=== PATIENT | female | born 1945 | race Caucasian/White ===

== ENCOUNTER → 2023-10-08 11:30 | Outpatient (REF) | payer MEDICARE, OTHER, SELFPAY ==
[2023-10-08 16:00] LABS: Hematocrit 43.3 % (37.0-47.0); Hemoglobin 14.7 g/dL (12.0-16.0); Mean Corp Hgb Conc. 33.9 g/dL (33.0-37.0); Mean Corpuscular Volume 88.4 fL (81.0-99.0); Platelet Count 213 10^3/uL (130-400); Red Cell Dist. Width 12.3 % (11.5-14.5); White Blood Cell Count 4.7 10^3/uL (4.8-10.8)
[2023-10-08 16:18] LABS: ALT (SGPT) 28 U/L (0-35); AST (SGOT) 30 U/L (14-36); Albumin 4.2 g/dl (3.5-5.0); Alkaline Phosphatase 106 U/L (38-126); Direct Bilirubin 0.2 mg/dl (0.0-0.4); Iron 140 ug/dl (37-170); Total Bilirubin 0.7 mg/dl (0.2-1.3); Total Protein 6.5 g/dl (6.3-8.2)
[2023-10-08 16:27] LABS: Percent Saturation 41 % (20-50); Total Iron Binding Capacity 336 ug/dl (265-497)
[2023-10-09 00:30] LABS: IgA 108 mg/dl (70-400); IgG 707 mg/dl (700-1600); IgM 40 mg/dl (40-230)
[2023-10-09 19:05] LABS: Hepatitis B Surface Antigen Negative (Negative)
[2023-10-09 19:23] LABS: Hepatitis B Core Ab, Total Negative (Negative); Hepatitis B Surface Antibody Negative; Hepatitis C Antibody Negative (Negative)
[2023-10-09 20:31] LABS: Hepatitis A Antibody, Total Borderline (Negative)
[2023-10-10 22:24] LABS: F-Actin Antibody IgG 6 Units (0-19); Mitochondrial M2 Ab, IgG 19.7 Units (0.0-24.9)
[2023-10-10 23:17] LABS: LKM-1 Ab (IgG) 0.8 U (0.0-24.9)
[2023-10-11 04:07] LABS: Alpha-1-Antitrypsin 141 mg/dL (90-200)
[2023-10-11 04:08] LABS: Ceruloplasmin 23 mg/dL (16-45)
[2023-10-11 13:22] LABS: ANA, IgG Reflex to HEp-2 None Detected (None Detected)
== END ==
LOC: HWLAB 11:30
PROVIDERS: ATTENDING PHYSICIAN Internal Medicine Gastroenterology; FAMILY PHYSICIAN Family Medicine
DX: K76.0 Fatty (change of) liver, not elsewhere classified (principal)
CPT/HCPCS: 36415; 80076; 82103; 82390; 82728; 82784; 83516; 83540; 83550; 85027; 86015; 86038; 86376; 86381; 86704; 86706; 86708; 86803; 87340

== ENCOUNTER → 2023-10-09 06:29 | Day surgery (SDC) | payer MEDICARE, OTHER, SELFPAY | LOC: GI 06:29 | PROVIDERS: ATTENDING PHYSICIAN Internal Medicine Gastroenterology | DX: Z12.11 Encounter for screening for malignant neoplasm of colon (principal); D12.2 Benign neoplasm of ascending colon; D12.5 Benign neoplasm of sigmoid colon; K57.30 Diverticulosis of large intestine without perforation or abscess without bleeding; K63.5 Polyp of colon; K62.1 Rectal polyp; K62.5 Hemorrhage of anus and rectum; Z85.038 Personal history of other malignant neoplasm of large intestine; Z98.0 Intestinal bypass and anastomosis status | CPT/HCPCS: 45380; 88305 ==

== ENCOUNTER 2023-10-23 19:00 | Emergency (ER) | payer MEDICARE, OTHER, SELFPAY ==
[2023-10-23 19:03] VITALS: BP 154/98
--- NOTE | 2023-10-23 21:21 | ED.SKININJ ---
HPI-Injury
General
Chief Complaint: Skin Surface Trauma
Source: patient and spouse
Exam Limitations: none
Time Seen by Provider: 10/23/23 21:13
Nursing documentation reviewed up to this point in time: agreed with
Travel History
Have you had any contact with someone who has COVID-19?: No
Do you have any symptoms of coronavirus? Fever > 100 degrees, chills, cough, shortness of breath, sore throat, loss of taste or smell, muscle aches, or headache?: No
History of Present Illness-Injury
Initial Injury comments:
Pleasant 78-year-old female that presents with a laceration to her left lower extremity. She states that she was cooking dinner and went to close a cabinet with her lower leg and she accidentally caught her anterior distal leg on a pot handle. She
states that the bleeding was severe so her called 911. She is unsure of her last tetanus status. Denies any other injury. Upon arrival, EMS was able to stop the bleeding with direct pressure.
Past History
Past History
ED Past Medical History: CAD, HTN, Hypercholesterolemia, [place], Other (Colon cancer 1997) and Other (L breast CA with lumpectomy and radiation treatments 2017)
ED Past Surgical History: Bowel resection, Cardiac (stent) and Other (Colon cancer with resection)
Social History
Tobacco: Non-smoker
Alcohol: None
Personal:
Living: with family
Employment: Not employed
Family History
Family History: Other (Noncontributory)
Review of Systems
Review of Systems
Allergies reviewed?: Yes
All Other Systems: ROS reviewed and negative except as documented in HPI and ROS
Constitutional: Reports no symptoms
EENT: Reports no symptoms
Respiratory: Reports no symptoms
Cardiac: Reports no symptoms
ABD/GI: Reports no symptoms
: Reports no symptoms
Musculoskeletal: Reports no symptoms
Skin: Reports no symptoms
Neurological: Reports no symptoms
Endocrine: Reports no symptoms
Hematologic/Lymphatic: Reports bleeding
Psychiatric: Reports no symptoms
Phy Exam
General Physical Exam
General Presentation: well appearing
General age: appears stated age
Skin Exam
Skin Exam: laceration
Psychiatric Exam
Psychiatric Exam: normal mood/affect
Course
Orders/Labs/Results
Orders:
Orders
10/23/23 21:19
Tetanus/Diphth/Acelpertussis [Adacel] 0.5 ml IM .ONCE ONE
Vital Signs
Initial and Last Documented VS:
Initial Vital Signs
Temp Pulse Resp BP Pulse Ox
98.1 F 62 18 154/98 97
10/23/23 19:03 10/23/23 19:03 10/23/23 19:03 10/23/23 19:03 10/23/23 19:03
Last Documented Vital Signs
Temp Pulse Resp BP Pulse Ox
98.1 F 60 16 149/83 99
10/23/23 19:03 10/23/23 22:38 10/23/23 22:38 10/23/23 22:38 10/23/23 22:38
Procedures
Laceration Closure
Left Lower Lateral Leg:
Status of Wound: clean
Size of Wound in cm: 5
Description of Wound Edges: sharp and flap-well vascularized
Preparation: cleaned with saline
Anesthesia: 1% Lidocaine
Revision/Debridement: routine- no revision
Wound exploration: explored to base- no FB
Type of Closure: single layer closure
Skin Closure Material: 4-0 nylon
Number of sutures: 9
Additional information:
Steri-Strips were added over sutures for strength
*Critical Care Note
Total Time (30-74mins, 75-104mins- exclusive of procedures): Not Applicable
ED Attending Note
-
Portions of this chart may have been created with voice recognition software.� Occasional wrong word or��sound alike� substitutions may have occurred due to the inherent limitations of voice recognition software.
Discharge Plan
Departure
Patient Disposition: Home (Routine Discharge)
Date of Disposition: 10/23/23
Time of Disposition: 22:15
Patient with high blood pressure during this ER visit?: Yes
Condition: Good
Discharge Problem:
Laceration
Instructions: Wound Care (DC), Laceration Repair With Stitches (DC), BLOOD PRESSURE
Prescriptions:
No Action
pantoprazole 40 MG tablet,delayed release (DR/EC)
40 mg PO DAILY Qty: 90 3RF
aspirin 81 MG tablet,chewable
81 mg PO DAILY 0RF
Patient Comments:
02/28/2021: STOPPED FOR SURGERY
metoprolol tartrate 25 MG tablet
25 mg PO BID Qty: 180 3RF
nitroglycerin 0.4 MG tablet, sublingual
0.4 mg sublingual [id number] PRN (Reason: chest pain) Qty: 25 2RF
acetaminophen 325 MG tablet
650 mg PO Q4HPRN PRN (Reason: mild pain)
hydrocodone-acetaminophen 1 TABLET tablet
1 - 2 tab PO Q6HPRN PRN (Reason: moderate pain)
Patient Comments:
02/28/2021: last filled 02/21/21, 30 tabs for 7 days from [facility]
gabapentin 300 MG capsule
300 mg PO HS
rosuvastatin 5 MG tablet
5 mg PO .3X WEEK
losartan 25 MG tablet
25 mg PO BID
Referrals:
Bc Larios DO [Family Provider] -
Activity Restrictions/Additional Instructions:
Sutures can be removed in 7 to 10 days.
Your tetanus shot was updated today
It was a pleasure meeting you and taking part in your care. We hope for your continued healing and wellness.
Please read discharge instructions in their entirety. However, they are for general education and may not describe your exact diagnosis at discharge. Information on your ER visit and medical conditions were discussed with you along with appropriate
follow up information...
If indicated, please take your medications as instructed and indicated on discharge paperwork.
Please schedule a follow up appointment as directed. Call to schedule an appointment
Please return to the emergency department with ANY change in, persisting, or worsening of symptoms. If any of your symptoms do not improve, or persist, or become more severe within 6-12 hours, please return to the emergency department for further
care.
Please return to the emergency department if you develop a headache, neck pain/stiffness, fever greater than 100.4F, chest pain, shortness of breath, persistent nausea, vomiting, slurred speech, difficulty walking, numbness/tingling, weakness, signs
of infection or any other symptoms that are worrisome to you.
If you have any questions or concerns please do not hesitate to call the Hospital at or E-mail me directly at [email or web address]
Interventions
Interventions:
*Risk Screen - Suicide Last Done: 10/23/23 19:07
*General Assessment Last Done: 10/23/23 19:07
*Neglect/Abuse Screening Last Done: 10/23/23 19:07
*Nursing Disposition Last Done: 10/23/23 22:38
Discharge Date and Time
Discharge Date/Time: 10/23/23 22:39
Print Language: CZECH
[2023-10-23] MEDS: ADACEL 0.5 ML IM (22:16)
[2023-10-23 22:38] VITALS: BP 149/83
== END 2023-10-23 22:39 | disposition home or self-care (01) ==
LOC: EMR 19:00
PROVIDERS: EMERGENCY PHYSICIAN Student in an Organized Health Care Education/Training Program; FAMILY PHYSICIAN Family Medicine
DX: S81.812A Laceration without foreign body, left lower leg, initial encounter (principal); W23.0XXA Caught, crushed, jammed, or pinched between moving objects, initial encounter; Z23 Encounter for immunization; I25.10 Atherosclerotic heart disease of native coronary artery without angina pectoris; I10 Essential (primary) hypertension; E78.00 Pure hypercholesterolemia, unspecified; Z95.5 Presence of coronary angioplasty implant and graft
CPT/HCPCS: 99282; 12002; 90471; 90715

== ENCOUNTER → 2024-04-12 13:04 | Outpatient (REF) | payer MEDICARE, OTHER, SELFPAY | LOC: RAD 13:04 | PROVIDERS: ATTENDING PHYSICIAN Nurse Practitioner Family; FAMILY PHYSICIAN Family Medicine | DX: I70.218 Atherosclerosis of native arteries of extremities with intermittent claudication, other extremity (principal); I82.542 Chronic embolism and thrombosis of left tibial vein | CPT/HCPCS: 93922; 93925; 93971 ==

== ENCOUNTER → 2024-04-20 12:03 | Outpatient (REF) | payer MEDICARE, OTHER, SELFPAY ==
[2024-04-20 16:58] LABS: HDL Cholesterol 42 mg/dl; LDL Cholesterol, Calculated 162 mg/dl; Total Cholesterol 250 mg/dl (50-199); Triglyceride 230 mg/dl (10-149); Very Low Density Lipoprotein 46 mg/dl (0-30)
== END ==
LOC: HWLAB 12:03
PROVIDERS: ATTENDING PHYSICIAN Nurse Practitioner; FAMILY PHYSICIAN Nurse Practitioner Family
DX: E78.5 Hyperlipidemia, unspecified (principal)
CPT/HCPCS: 36415; 80061

== ENCOUNTER → 2024-04-29 13:52 | Outpatient (REF) | payer MEDICARE, OTHER, SELFPAY | LOC: HWRCS 13:52 | PROVIDERS: ATTENDING PHYSICIAN Nurse Practitioner; FAMILY PHYSICIAN Family Medicine | DX: I10 Essential (primary) hypertension (principal) | CPT/HCPCS: 93306 ==

== ENCOUNTER → 2024-07-20 12:12 | Outpatient (REF) | payer MEDICARE, OTHER, SELFPAY ==
[2024-07-20 17:29] LABS: ALT (SGPT) 31 U/L (0-35); AST (SGOT) 32 U/L (14-36); Albumin 4.6 g/dl (3.5-5.0); Alkaline Phosphatase 112 U/L (38-126); Blood Urea Nitrogen 23 mg/dl (7-17); Calcium 9.9 mg/dl (8.4-10.2); Carbon Dioxide 29 mmol/L (22-30); Chloride 101 mmol/L (98-107); Direct Bilirubin 0.2 mg/dl (0.0-0.4); Glucose 97 mg/dl (70-99); Potassium 4.3 mmol/L (3.5-5.1); Sodium 139 mmol/L (135-145); Total Bilirubin 0.9 mg/dl (0.2-1.3); Total Protein 6.8 g/dl (6.3-8.2); eGFR > 60.00
[2024-07-20 19:48] LABS: Hepatitis A Antibody, Total Positive (Negative)
== END ==
LOC: HWLAB 12:12
PROVIDERS: ATTENDING PHYSICIAN Internal Medicine; FAMILY PHYSICIAN Nurse Practitioner Family; REFERRING PHYSICIAN Internal Medicine Gastroenterology
DX: I10 Essential (primary) hypertension (principal); K76.0 Fatty (change of) liver, not elsewhere classified
CPT/HCPCS: 36415; 80053; 82248; 86708

== ENCOUNTER → 2024-10-07 11:11 | Outpatient (REF) | payer MEDICARE, OTHER, SELFPAY ==
[2024-10-07 16:17] LABS: ALT (SGPT) 28 U/L (0-35); AST (SGOT) 27 U/L (14-36); Albumin 4.4 g/dl (3.5-5.0); Alkaline Phosphatase 101 U/L (38-126); Blood Urea Nitrogen 19 mg/dl (7-17); Calcium 9.9 mg/dl (8.4-10.2); Carbon Dioxide 28 mmol/L (22-30); Chloride 104 mmol/L (98-107); Glucose 96 mg/dl (70-99); Potassium 4.1 mmol/L (3.5-5.1); Sodium 140 mmol/L (135-145); Total Bilirubin 0.8 mg/dl (0.2-1.3); Total Protein 6.6 g/dl (6.3-8.2); eGFR > 60.00
[2024-10-07 16:18] LABS: Urine Albumin 1+ (Neg - Trace); Urine Bilirubin Negative (Negative); Urine Character Slightly Cloudy (Clear); Urine Color Yellow; Urine Glucose Negative (Negative); Urine Ketone Negative (Negative); Urine Leukocyte 3+ (Negative); Urine Nitrite Negative (Negative); Urine Occult Blood 1+ (Negative); Urine Urobilinogen Negative (Neg - 1+)
[2024-10-07 16:28] LABS: C-Reactive Protein < 5.00 mg/L (0.0-10.00)
[2024-10-07 16:30] LABS: % Eosinophils 2.8 % (0-6); % Immature Granulocytes 0.6 % (0-0.5); % Lymphocytes 21.6 % (20.5-51.1); % Monocytes 11.9 % (1.7-9.3); % Neutrophils 62.1 % (42.2-75.2); Absolute Basophils 0.1 10^3/uL (0-0.2); Absolute Eosinophils 0.1 10^3/uL (0-0.7); Absolute Lymphocytes 1.1 10^3/uL (1.2-3.4); Absolute Monocytes 0.6 10^3/uL (0.1-0.6); Absolute Neutrophils 3.1 10^3/uL (1.4-6.5); Hematocrit 43.7 % (37.0-47.0); Hemoglobin 14.6 g/dL (12.0-16.0); Mean Corp Hgb Conc. 33.4 g/dL (33.0-37.0); Mean Corpuscular Hgb 29.7 pg (27.0-31.0); Mean Corpuscular Volume 88.8 fL (81.0-99.0); Mean Platelet Volume 9.3 fL (7.4-10.4); Nucleated Red Blood Cells % 0 %; Platelet Count 191 10^3/uL (130-400); Red Blood Cell Count 4.92 10^6/uL (4.20-5.40); Red Cell Dist. Width 12.4 % (11.5-14.5)
[2024-10-07 16:47] LABS: Free T4 0.84 ng/dl (0.78-2.19)
[2024-10-07 17:34] LABS: Erythrocyte Sed Rate 2 mm/hour (0-20)
[2024-10-07 17:44] LABS: Urine Squamous Cell >30 /LPF (Few)
[2024-10-07 17:46] LABS: Urine Bacteria Many (Negative); Urine White Cell 50-60 /HPF (0-5)
[2024-10-08 10:21] LABS: Glycohemoglobin (HgbA1c) 5.9 % (4.0-5.6)
[2024-10-10 00:39] LABS: ANA, IgG Reflex to HEp-2 None Detected (None Detected)
[2024-10-10 07:29] LABS: Arsenic, Blood <10.0 ug/L (<=12.0); Lead - Venous <2.0 ug/dL (<=4.9); Mercury, Blood <2.5 ug/L (<=10.0)
== END ==
LOC: HWLAB 11:11
PROVIDERS: ATTENDING PHYSICIAN Specialist; FAMILY PHYSICIAN Nurse Practitioner Family
DX: I10 Essential (primary) hypertension (principal); Z00.00 Encounter for general adult medical examination without abnormal findings; I73.00 Raynaud's syndrome without gangrene; M25.50 Pain in unspecified joint; R53.83 Other fatigue
CPT/HCPCS: 36415; 80053; 81003; 81015; 82088; 82175; 82384; 83036; 83655; 83825; 83835; 84244; 84439; 84443; 85025; 85652; 86038; 86140; 86430; 86618; 87086

== ENCOUNTER → 2024-10-22 09:41 | Outpatient (REF) | payer MEDICARE, OTHER, SELFPAY | LOC: HWRAD 09:41 | PROVIDERS: ATTENDING PHYSICIAN Specialist; FAMILY PHYSICIAN Family Medicine; REFERRING PHYSICIAN Internal Medicine | DX: I10 Essential (primary) hypertension (principal); I25.10 Atherosclerotic heart disease of native coronary artery without angina pectoris | CPT/HCPCS: 93975 ==

== ENCOUNTER 2025-01-03 01:59 | Inpatient (IN) | payer MEDICARE, OTHER, SELFPAY ==
[2025-01-02] VITALS (7 sets, daily range): BP systolic 118–147; BP diastolic 76–87
[2025-01-02 21:19] LABS: Hematocrit 40.4 % (37.0-47.0); Hemoglobin 14.1 g/dL (12.0-16.0); Mean Corp Hgb Conc. 34.9 g/dL (33.0-37.0); Mean Corpuscular Volume 87.8 fL (81.0-99.0); Nucleated Red Blood Cells % 0 %; Platelet Count 180 10^3/uL (130-400); Red Cell Dist. Width 12.3 % (11.5-14.5)
[2025-01-02 21:40] LABS: ALT (SGPT) 26 U/L (0-35); AST (SGOT) 27 U/L (14-36); Albumin 4.3 g/dl (3.5-5.0); Alkaline Phosphatase 87 U/L (38-126); Blood Urea Nitrogen 25 mg/dl (7-17); Calcium 10.0 mg/dl (8.4-10.2); Carbon Dioxide 27 mmol/L (22-30); Chloride 106 mmol/L (98-107); Estimated Creatinine Clearance 61 ml/min; Glucose 106 mg/dl (70-99); Potassium 3.3 mmol/L (3.5-5.1); Sodium 140 mmol/L (135-145); Total Protein 6.5 g/dl (6.3-8.2); eGFR > 60.00
[2025-01-02 21:51] LABS: Troponin I 0.031 ng/ml
[2025-01-02] MEDS: NITROSTAT (SUBLINGUAL) 0.4 MG SL ×3 (22:47→23:14)
--- NOTE | 2025-01-02 23:14 | ED.GENMED ---
History of Present Illness
General
Chief Complaint: Chest Pain
Source: patient, family and previous hospital records
Exam Limitations: none
Time Seen by Provider: 01/02/25 22:53
Nursing documentation reviewed up to this point in time: agreed with
History of Present Illness
History of Present Illness:
This is a 79-year-old woman with history of CAD, non-STEMI March 2020. Underwent PTCA with stent to the circumflex. She also has history of hypertension, hyperlipidemia, remote history of breast cancer status postlumpectomy/radiation, remote
history of colon cancer. History of T2-T3 meningioma requiring surgical excision 2020.
She presents with exertional substernal chest pain/pressure that has been intermittent over the past week. Substernal chest pain described as a burning sensation substernal that radiates to her anterior neck, worse with activity, improves with
rest. Occasionally accompanied with mild shortness of breath, occasionally associated with mild diaphoresis as well as 1 episode of mild nausea.
She arrives via EMS. Was given 324 mg chewable aspirin prehospital.
Initially without chest pain upon arrival but reports return of chest pain after ambulating to and from the bathroom.
She believes chest pain feels similar to chest pain she experienced in 2019 with non-STEMI.
Prehospital EKG shows normal sinus rhythm, flipped T waves inferiorly with very minimal ST depression in lead I and aVL. ST depression normalized upon arrival to the ED, flipped T waves in 3 persists, has flattened and aVF. No evidence of STEMI.
Patient also notes several week history of left medial lower leg discomfort at an area of chronic venous insufficiency/hemosiderin staining left medial lower leg as well as chronic subcutaneous nodularity. She underwent ultrasound at urgent care on
Friday, 5 days ago while she was at the [facility]. She states ultrasound was negative for DVT. She was prescribed an antibiotic for potential cellulitis but she did not start the antibiotic due to intermittent episodes of chest pain, burning
sensation. She admits that she did not mention the chest pain while evaluated at urgent care.
She has not had a fever nor chills. Left lower leg brownish discoloration is chronic and unchanged. She has not noticed redness.
Past History
Past History
ED Past Medical History: CAD, HTN, Hypercholesterolemia, [place] (Non-STEMI March 2020), Other (Colon cancer 1997), Other (L breast CA with lumpectomy and radiation treatments 2017) and Other (T2/T3 meningioma requiring resection)
ED Past Surgical History: Bowel resection, Cardiac (PTCA with stent to the circumflex March 2020) and Other (Colon cancer with resection)
Social History
Tobacco: Non-smoker
Alcohol: None
Personal:
Living: with family
Employment: Retired
Family History
Family History: Other (Noncontributory)
Phy Exam
Physical Exam
Physical Exam:
GENERAL: 79-year-old woman appears her stated age, bright and alert, pleasant, appears in no acute distress. Multiple family members are accompanying.
EYE: anicteric
NECK: Supple, nontender, no meningismus, no significant adenopathy. No JVD.
ENT: oral mucosa is moist. No rhinorrhea.
CARDIAC: Regular rate and rhythm. no murmur. No palpable chest wall tenderness.
LUNGS: Clear breath sounds bilaterally, no acute respiratory distress, no wheezes/rales/rhonchi
ABDOMEN: Soft, nondistended, without focal tenderness, normoactive BS.
NEUROLOGICAL: Alert and oriented x3, no focal neuro deficits.
SKIN: Warm and dry, normal color, skin intact. No rash.
MUSCULOSKELETAL: No C/C/E. peripheral pulses are full and equal b/l. Venous stasis hemosiderin staining left medial lower leg with palpable subcutaneous nodularity left medial lower leg that is mildly locally tender to palpation. There is no
erythema, no palpable heat. No soft tissue swelling.
PSYCH: Normal and appropriate interaction.
Scores
Heart Score for Chest Pain Patients
STEMI patient?: No
History: Highly Suspicious
ECG: Normal
Age: >/= 65 years
Risk Factors: >/= 3 Risk Factors or History of CAD
Troponin: >1 - <3 x Normal Limit
Heart Score for Chest Pain Patients: 7
Heart Score Risk: 72.7 % MACE over next 6 weeks
Course
Orders/Labs/Results
Orders:
Orders
01/02/25 20:52
Electrocardiogram (*1) Urgent
Reason for Study: Chest Pain
EKG- Treatment ONCE
01/02/25 21:00
Complete Blood Count/With Diff Urgent
Comprehensive Metabolic Panel Urgent
Troponin I Urgent
01/02/25 22:38
EKG [Electrocardiogram (*1)] Urgent
Reason for Study: Chest Pain
EKG- Treatment ONCE
01/02/25 22:45
Nitroglycerin Sublingual [Nitrostat (Sublingual)] 0.4 mg .ROUTE .STK-MED ONE
01/02/25 22:46
Nitroglycerin Sublingual [Nitrostat (Sublingual)] 0.4 mg SL [id number] PRN
01/02/25 22:59
PTT Urgent
01/02/25 23:10
Nitroglycerin Sublingual [Nitrostat (Sublingual)] 0.4 mg SL NOW STA
CR Chest Portable - 1 View Urgent
Comment:
Reason For Exam: Acute CP
Reason Study Needs to be Portable: Unable to Transport
01/02/25 23:[address] Non Medication Order As Directed
Physician Order: PTT 6 hours after initial start of Heparin infusion
Above order entered?: Yes
01/02/25 23:15
Heparin 38109 Units/250 ml 25,000 units in 250 ml IV PER PROTOCOL
Weight to be used for heparin protocol in kilograms (kg):: 75.7
Protocol:: Cardiac Tx/Acute Coronary
PTT Goal Range to be used:: PTT 73 to 111 seconds
Order type:: Initial
INITIAL Infusion Dose (UNITS/KG/hr) & then follow protocol:: 12 units/kg/hr
Infusion Dose in UNITS/hr & then follow protocol (UNITS/hr):: 900
INFUSION RATE in mL/hr & then follow protocol (mL/hr):: 9
PTT less than or equal to 64 seconds:: Increase rate by 200 units/hr (+ 2 mL/hr)
PTT 64.1 to 72.9 seconds:: Increase rate by 100 units/hr (+ 1 mL/hr)
PTT 73 to 111 seconds:: Target Range. No change in rate.
PTT 111.1 to 130.9 seconds:: Decrease rate by 100 units/hr (- 1 mL/hr)
PTT 131 to 199.9 seconds:: HOLD for 1 hr. Then decrease rate by 200 units/hr (- 2 mL/hr)
PTT greater than or equal to 200 seconds:: HOLD for 2 hrs & Notify Provider. Then decrease by 200 units/hr (-
2 mL/hr)
Lab follow-up:: Each change, PTT q6h until 2 consecutive are therapeutic. Then PTT
daily.
01/02/25 23:18
Troponin I Urgent
01/03/25 01:27
Admit/Transfer Patient As Directed
Co-Sign Provider:
Level of Care: Inpatient admission
Assign to:: IVU
Physician / Group: Rory
Diagnosis: NSTEMI
Reason for Hospitalization: NSTEMI
Expected length of stay greater than two midnights?: Yes
ELOS- Estimated Length of Stay in days: 3
I certify the patient meets the requirements for IP care: Yes
PRN Pain Medication Management As Directed
May give lesser potent ordered pain med per pt: Yes
preference::
Protocol:: Medication orders for pain may be administered in a
manner that supports deferring to patient preference
when the pt is:
- Requesting an ordered lesser potent pain medication.
Least to most potent pain medications are defined
as: acetaminophen < NSAID < tramadol < opioids
(morphine, oxycodone, hydromorphone).
- Requesting a lesser dose of the same medication IF
ORDERED.
- Requesting a less intrusive route of administration
if both routes are prescribed by the provider (PO <
IV).
01/03/25 01:29
Code Status As Directed
Resuscitation Status: Full Code
01/03/25 02:46
Acetaminophen [Tylenol] 650 mg PO Q4HPRN PRN
Morphine Sulfate 2 mg IV Q4HPRN PRN
01/03/25 02:46
CARDIOLOGY CONSULT Routine
Consulting Provider: Isabel Luke.
Was physician already notified: Yes
Reason for consult: NSTEMI
Heparin Protocol- PTT Orders As Directed
PTT per Heparin protocol: -Obtain CBC and baseline PTT - if not already collected.
-Obtain PTT 6 hours from start of infusion. Then, every 6 hours until 2 consecutive
PTT's are therapeutic. Then, PTT Daily.
-With each rate change, obtain PTT every 6 hours until 2 consecutive PTT's are
therapeutic. Then, PTT Daily.
Activity As Directed
Activity Level: Bedrest
EKG with chest pain [ECG as needed] As Directed
ECG as needed for:: Chest Pain
I/O [Intake/ Output] As Directed
Frequency: Per unit guidelines
Notify MD As Directed
Notify physician if: PTT is greater than or equal to 200.
Vital Signs As Directed
Frequency: Per unit guidelines
Oxygen Therapy [O2 Therapy] [RESP] Routine
Titrate/Wean O2 to maintain O2 sat greater than (%): 94
01/03/25 05:49
Basic Metabolic Panel IN AM
Cardiovascular Evaluation IN AM
Complete Blood Count/No Diff IN AM
Glycohemoglobin (HgbA1c) Routine
PTT Urgent
Comment: hep gtt
Troponin I Q6H
01/03/25 06:00
EKG [Electrocardiogram (*1)] IN AM
Reason for Study: Chest Pain
NPO
Allow oral meds: Yes
Allow clear liquids: Sips of Clears
01/03/25 08:00
Aspirin Chewable [Low Strength Aspirin] 81 mg PO DAILY
Carvedilol [Coreg] 6.25 mg PO BID
Ezetimibe [Zetia] 10 mg PO DAILY
Gabapentin [Neurontin] 200 mg PO BID
Losartan [Cozaar] 50 mg PO BID
01/03/25 08:46
Troponin I Q6H
01/03/25 14:46
Troponin I Q6H
01/05/25 06:00
Complete Blood Count/No Diff Q2D
Comment: notify provider: Platelet count < 130,000 or decrease by 50% from baseline
01/07/25 06:00
Complete Blood Count/No Diff Q2D
Comment: notify provider: Platelet count < 130,000 or decrease by 50% from baseline
01/09/25 06:00
Complete Blood Count/No Diff Q2D
Comment: notify provider: Platelet count < 130,000 or decrease by 50% from baseline
01/11/25 06:00
Complete Blood Count/No Diff Q2D
Comment: notify provider: Platelet count < 130,000 or decrease by 50% from baseline
01/13/25 06:00
Complete Blood Count/No Diff Q2D
Comment: notify provider: Platelet count < 130,000 or decrease by 50% from baseline
01/15/25 06:00
Complete Blood Count/No Diff Q2D
Comment: notify provider: Platelet count < 130,000 or decrease by 50% from baseline
01/17/25 06:00
Complete Blood Count/No Diff Q2D
Comment: notify provider: Platelet count < 130,000 or decrease by 50% from baseline
01/19/25 06:00
Complete Blood Count/No Diff Q2D
Comment: notify provider: Platelet count < 130,000 or decrease by 50% from baseline
Abnormal Lab Results
01/02/25 01/02/25
21:00 23:18
Absolute Monos (auto) 0.8 H 10^3/uL
(0.1-0.6)
Monocytes % 13.3 H %
(1.7-9.3)
Potassium 3.3 L mmol/L
(3.5-5.1)
BUN 25 H mg/dl
(7-17)
Glucose 106 H mg/dl
(70-99)
Troponin I 0.054 H* D ng/ml
01/02/25 21:00
01/02/25 21:00
Vital Signs
Initial and Last Documented VS:
Initial Vital Signs
Temp Pulse Ox
97.9 F 98
01/02/25 20:52 01/02/25 20:52
Last Documented Vital Signs
Temp Pulse Resp BP Pulse Ox
98.3 F 69 16 146/85 97
01/03/25 03:20 01/03/25 04:00 01/03/25 03:20 01/03/25 03:20 01/03/25 03:20
MDM/Problems Addressed
Differential Diagnosis Includes:
History and exam quite concerning for ACS. Concern for non-STEMI. Other consideration is CHF, GERD, musculoskeletal chest pain. Less likely pneumonia.
Mild return of chest pain after ambulating to and from the bathroom. Repeat EKG again shows no evidence of STEMI.
There is been resolution of high lateral ST depression and resolution of flipped T waves inferiorly noted on prehospital EKG.
Current EKG overall appears similar to previous January 2021.
Labs are unremarkable save for mild hypokalemia with potassium of 3.3. Initial troponin 0.031.
Near complete resolution of chest pain after 2 sublingual nitroglycerin. Will give a third and will initiate IV heparin.
Will repeat troponin now.
Will plan to admit to hospitalist service with consult to cardiology. Patient follows with Dr. Hurst.
Chronic conditions affecting care: HTN and CAD
*Pulse Oximetry
SaO2: 97
Oxygen Mode of Delivery: Room air
Patient hypoxic: no
*EKG
Interpreted by ED Provider?: Yes
Interpretation: normal
Comparison EKG: no changes
Rate: normal
Rhythm: sinus
[place]: left axis deviation
Interval: normal interval
QRS Pattern: normal QRS
Ischemia: non-specific ST changes
*Medical Instrument Technician Interpretation
Rate: normal
Interpretation: normal
Rhythm: sinus
*Critical Care Note
Total Time (30-74mins, 75-104mins- exclusive of procedures): 30
comment:
Critical care statement: A total of 30 minutes of critical care time was provided for this patient. This includes management of unstable vital signs, evaluation of the patient at bedside, reviewing the patient's pertinent medical records, discussion
with consultants, review of old EKGs and review of pertinent medical records. This time with separate from time utilized to perform the aforementioned documented procedures
ED Attending Note
-
Portions of this chart may have been created with voice recognition software.� Occasional wrong word or��sound alike� substitutions may have occurred due to the inherent limitations of voice recognition software.
Discharge Plan
Departure
Patient Disposition: Admit
Date of Disposition: 01/03/25
Time of Disposition: 00:13
Admit to: IVU
Admit to doctor: Rory
Presentation/result/management discussed w/ accepting MD/DO: Hospitalist
Condition: Fair
Discharge Problem:
Acute coronary syndrome
Interventions
Interventions:
*Risk Screen - Suicide Last Done: 01/02/25 20:52
*General Assessment Last Done: 01/02/25 20:52
*Neglect/Abuse Screening Last Done: 01/02/25 20:52
*ED- Fall Risk Assessment Last Done: 01/02/25 20:52
*ED COVID-19 Vaccine History Last Done: 01/02/25 20:52
*Nursing Disposition Last Done: 01/03/25 02:54
ED- Cardiac Assessment Last Done: 01/02/25 20:52
Discharge Date and Time
Discharge Date/Time: 01/03/25 02:54
[2025-01-02 23:16] LABS: APTT 29.0 Sec (23.4-35.0)
[2025-01-02] MEDS: HEPARIN 25000 UNITS/250 ML IV (23:29)
[2025-01-02 23:55] LABS: Troponin I 0.054 ng/ml
[2025-01-03] VITALS (17 sets, daily range): BP systolic 132–172; BP diastolic 68–101; BMI 31.4
--- NOTE | 2025-01-03 01:33 | HPS.HSE ---
Family Physician
-
Family Physician: Manuela Sewell
Chief Complaint
-
Chest Pain
History of Present Illness
Patient is a 79y F with PMH significant for ASCVD and hypertension who presents to ED complaining of chest pain. Patient notes that she had initial chest 'crunchiness' on Friday of this past week. She was in a stressful, emotional situation
involving a dog and a chicken when the symptoms first began. Since that time, she has had several episodes of recurrent symptoms - typically associated with activity / exertion. She has occasionally had associated diaphoresis or nausea. Her
symptoms typically last several minutes and are relieved by rest. She also notes waking in the night with similar symptoms - and in retrospect states that this has been occurring for at the least the past month or so.
Patient had an episode of severe chest pain / heaviness this evening that was of greater intensity that prior episodes. She presented to the ED for further evaluation.
Since arrival, her pain has completely resolved. She is currently resting comfortably without complaints.
Patient states that she is intermittently compliant with her ASA and takes it 'when I remember'.
Patient also notes that she has had difficulty walking for several months due to pain in the legs with ambulation. She has leg cramps several times throughout the night that wake her from sleep and improve with soaking in warm water.
Medical History
Past Medical History
Past Medical History: Reports Other
Additional Past Medical History:
ASCVD
Hypertension
Colon Cancer
Breast Cancer
Spinal Meningioma
Past Surgical History: Reports Other
Additional Past Surgical History:
PTCA with Stent (LCx, 2019)
Spinal Mass (T3-4)
Appendectomy
D&C
Right Rotator Cuff Repair
Left Lumpectomy
Cataracts
Left Hemicolectomy
Thyroid Biopsy
Social History
Tobacco: Non-smoker
Alcohol: Occasional
Drug: None
Family History
Family History: Not pertinent
Allergies / Home Medications
Allergies reflects when Allergies were last updated in [employer].
Home Medications with original date entered in [employer]
Allergy/Medication List:
Allergies
Allergy/AdvReac Type Severity Reaction Status Date / Time
lisinopril Allergy Shortness Verified 01/02/25 20:51
of Breath
meperidine HCl (From Demerol) Allergy intensifies Verified 01/02/25 20:51
the pain
Home Medications
nitroglycerin 0.4 mg sublingual tablet 0.4 mg sublingual [id number] PRN chest pain #25 tabs 04/07/20
aspirin 81 mg chewable tablet 81 mg PO DAILY 01/03/25
carvedilol 6.25 mg tablet 6.25 mg PO BID 01/03/25
ezetimibe 10 mg tablet 10 mg PO DAILY 01/03/25
gabapentin 100 mg tablet 200 mg PO BID 01/03/25
hydrochlorothiazide 12.5 mg tablet 12.5 mg PO DAILY 01/03/25
levomefolate 7.5 mg-algal oil 90.314 mg capsule 1 cap PO DAILY 01/03/25
losartan 50 mg tablet 50 mg PO BID 01/03/25
Review of Systems
-
History Source: Patient
A 12 point ROS was completed and negative except as noted: Yes
Constitutional: Denies Fever or Chills
Respiratory: Reports Trouble Breathing; Denies Cough
Cardiac: Reports Chest Pain and Diaphoresis; Denies Palpitations or Syncope
Abdomen/GI: Reports Nausea; Denies Abdominal Pain, Vomiting or Diarrhea
: Denies Dysuria or Frequency
Musculoskeletal: Denies Joint Pain or Edema
Neurological: Denies Dizzy or Headache
Psych: Denies Depression or Anxiety
Physical Exam
Vital Signs
Vital Signs
Temp Pulse Resp BP Pulse Ox
97.9 F 77 20 152/76 97
01/02/25 20:52 01/03/25 01:00 01/03/25 01:00 01/03/25 01:00 01/03/25 01:00
Physical Exam
General: Other (79y F in no acute distress.)
HEENT: Moist mucous membranes and PERRLA
Respiratory: Clear; No Wheezes, Rales or Rhonchi
Cardiac: S1/S2 and Regular Rhythm; No Murmur
GI: Soft, Non Tender, Non Distended and Normal Bowel Sounds
Musculoskeletal: No Clubbing, No Cyanosis and Other (Chronic venous stasis skin / pigment changes.)
Neuro: AO x 3
Laboratory Results
-
01/02/25 21:00
01/02/25 21:00
Laboratory Results
APTT 29.0 Sec (23.4-35.0) 01/02/25 22:59
Total Bilirubin 0.7 mg/dl (0.2-1.3) 01/02/25 21:00
AST 27 U/L (14-36) 01/02/25 21:00
ALT 26 U/L (0-35) 01/02/25 21:00
Alkaline Phosphatase 87 U/L (38-126) 01/02/25 21:00
Troponin I 0.054 ng/ml H* D 01/02/25 23:18
Impression/Plan
-
A/P: Patient is a 79y F with PMH significant for ASCVD and hypertension who presents to ED complaining of chest pain.
NSTEMI
ASCVD
- Admit for further evaluation and treatment.
- Patient with some symptoms for at least a month (paroxysmal nocturnal dyspnea, chest pain, etc) and now more severe / frequent chest pain with exertion for the past week.
- EKG with inverted T wave in III alone that improved on repeat tracing.
- Troponin 0.031 to 0.054.
- Pain free at present.
- IV heparin, ASA. Follow troponin to peak. Monitor for recurrent symptoms.
- Cardiology consulted for probable ischemic evaluation.
- Emphasized to patient the importance of compliance with uninterrupted ASA therapy.
- She is resistant to taking statins despite her significant risks. Continue Zetia.
Benign Hypertension
- Stable. BP controlled at present.
- Continue outpatient med regimen with holding parameters.
Leg Cramps
- Suspect that LE symptoms (pain with activity, nocturnal cramps, etc) may also be due to ASCVD / PAD.
- Would pursue non-invasive vascular studies after CAD issues are addressed.
DVT Prophylaxis: On IV Heparin at present.
Code Status: Full
[2025-01-03] MEDS: KCL 40 MEQ PO (03:26)
--- NOTE | 2025-01-03 03:47 | PTCARENOTE ---
Received pt from ED accompanied by RN, at approx 0245, via stretcher. Tele placed on pt. SR, HR in the 70's. Heparin gtt infusing per protocol. pt denies any CP or SOB at this time. pt K was 3.3 upon admission, K supplement administered per [employer]
order--see AUG. pt made aware of NPO status, verbalizes understanding. pt oriented to room and call soares. Educated pt to call RN with any questions/concerns and for assistance w/ ambulating. Call soares within reach.
[2025-01-03 06:00] LABS: Hematocrit 38.0 % (37.0-47.0); Hemoglobin 13.1 g/dL (12.0-16.0); Mean Corp Hgb Conc. 34.5 g/dL (33.0-37.0); Mean Corpuscular Volume 87.8 fL (81.0-99.0); Platelet Count 156 10^3/uL (130-400); Red Cell Dist. Width 12.3 % (11.5-14.5)
--- NOTE | 2025-01-03 06:08 | PTCARENOTE ---
Assisted pt to bathroom, pt noted chest pressure with exertion, when asked to rate the pain on scale of 0-10, pt was vague with response and eventually stated it was a 4/10. pt laying in bed at this time. pt states w/ rest, the pain has resolved and
she has no pain at this time. Educated pt to call RN if any CP occurs. pt verbalizes understanding. Call soares within reach.
[2025-01-03 06:16] LABS: APTT 65.2 Sec (23.4-35.0)
[2025-01-03 06:23] LABS: Blood Urea Nitrogen 19 mg/dl (7-17); Calcium 9.6 mg/dl (8.4-10.2); Carbon Dioxide 26 mmol/L (22-30); Chloride 109 mmol/L (98-107); Estimated Creatinine Clearance 70 ml/min; Glucose 91 mg/dl (70-99); HDL Cholesterol 38 mg/dl; LDL Cholesterol, Calculated 116 mg/dl; Potassium 3.8 mmol/L (3.5-5.1); Sodium 140 mmol/L (135-145); Very Low Density Lipoprotein 30 mg/dl (0-30); eGFR > 60.00
[2025-01-03 06:36] LABS: Troponin I 0.060 ng/ml
--- NOTE | 2025-01-03 07:31 | CON.CAR ---
Addendum entered and electronically signed by Darion Ames MD 01/03/25 10:53:
I saw and examined the patient.
The AUTO RENTAL CLERK's note was reviewed and I agree with the note.
Comment: cath today
Original Note:
Consultation
Consultation Request
Date/Time Consultation Requested: 01/03/2025 02:45
Date/Time Consultation Performed: 01/03/2025 07:30
Requesting Provider: Dr. Valadez
Performing Provider: RED Stiles for Dr. Ames
Reason for Consultation: NSTEMI
Medical History
-
Chief Complaint: Chest pain
History of Present Illness:
Catherine Cardoso is a 79-year-old female (known to Dr. Hurst, her primary tools and parts attendant), with CAD (NSTEMI with JAVON to LCx/OM and residual disease), hypertension, hypercholesterolemia, statin intolerance, breast cancer (status post lumpectomy and XRT,
2016), & colon cancer (hemicolectomy, 1997), presented to the emergency department last evening with a chief complaint of chest pain. This has been ongoing for about a month. This is all reminiscent from her prior PCI. She describes her chest
discomfort as a burning sensation. It gets worse with exertion and improves with rest. It does not radiate. She denies associated symptoms of shortness of breath, dizziness, and diaphoresis. She thinks this escalated due to a situation with her
dog chasing a chicken. She is not having any chest pain at rest. We discussed coronary angiography. She is agreeable. She has not been taking aspirin every day. She was unaware of its importance. She thought it was 'just recommended'. She
thought her losartan was keeping her stent open. She is not on any statin due to intolerance. She is also concerned about lowering her cholesterol and it affecting her brain activity. We did discuss rosuvastatin and she was agreeable for trial.
Past Medical History
Past Medical History: CAD (JAVON to LCx 2019), Cancer (Breast [status post lumpectomy and XRT, 2016], colon cancer [hemicolectomy, 1997]), HTN, Hypercholesterolemia, SD and Other (Meningioma)
Past Surgical History: Appendectomy, Bowel Resection, Brain (Meningioma resection) and Orthopedic
Social History
Tobacco: Non-Smoker
Alcohol: None
Drug: None
Personal:
Living: With Family
Family History
Family History: Reviewed & Not Pertinent
Allergies / Home Medications
Allergy/AdvReac Type Severity Reaction Status Date / Time
lisinopril Allergy Shortness Verified 01/02/25 20:51
of Breath
meperidine HCl (From Demerol) Allergy intensifies Verified 01/02/25 20:51
the pain
�Medication �Instructions �Recorded �Confirmed �Type
nitroglycerin 0.4 mg sublingual 0.4 mg sublingual [id number] PRN 04/07/20 01/03/25 Rx
tablet chest pain #25 tabs
aspirin 81 mg chewable tablet 81 mg PO DAILY 01/03/25 01/03/25 History
carvedilol 6.25 mg tablet 6.25 mg PO BID 01/03/25 01/03/25 History
ezetimibe 10 mg tablet 10 mg PO DAILY 01/03/25 01/03/25 History
gabapentin 100 mg tablet 200 mg PO BID 01/03/25 01/03/25 History
hydrochlorothiazide 12.5 mg tablet 12.5 mg PO DAILY 01/03/25 01/03/25 History
levomefolate 7.5 mg-algal oil 1 cap PO DAILY 01/03/25 01/03/25 History
90.314 mg capsule
losartan 50 mg tablet 50 mg PO BID 01/03/25 01/03/25 History
Review of Systems
-
History Source: Patient
All other systems: Negative unless noted
Constitutional: No Symptoms
EENT: No Symptoms
Respiratory: No Symptoms
Cardiac: Chest Pain (See HPI)
Abdomen/GI: No Symptoms
: No Symptoms
Musculoskeletal: Muscle Pain (Chronic leg pain)
Skin: No Symptoms
Neurological: No Symptoms
Endocrine: No Symptoms
Hematologic/Lymphatic: No Symptoms
Physical Exam
Vital Signs
Temp Pulse Resp BP Pulse Ox
97.9 F 69 20 146/85 97
01/03/25 07:19 01/03/25 04:00 01/03/25 07:19 01/03/25 03:20 01/03/25 07:19
Lab Results
01/03/25 05:49
01/03/25 05:49
Troponin I 0.060 ng/ml H* 01/03/25 05:49
Physical Exam
General: Well Developed, Well Nourished, No Apparent Distress and Comfortable
HEENT: Normocephalic, Anicteric and Moist Mucous Membranes
Respiratory: Clear and Non Labored Respirations
Cardiac: S1/S2 and Regular Rhythm
Breast: Deferred by me
GI: Soft, Non Tender, Non Distended and Normal Bowel Sounds
Rectal: Deferred by Provider
Genito-urinary: No Costovertebral Tender
Musculoskeletal: No Clubbing and No Cyanosis
Skin: Warm
Neuro: AO x 3
Hematologic/Lymphatic: No Lymphadenopathy
Psych: Calm
Impression / Plan
-
I/P: 79F with CAD (NSTEMI with JAVON to LCx/OM and residual disease), hypertension, hypercholesterolemia, statin intolerance, breast cancer (status post lumpectomy and XRT, 2017), & colon cancer (hemicolectomy, 1997), presented with CP.
Primary Hvac Mechanic: Dr. Hurst
NSTEMI
- Chest pain-free at rest
- Trend troponin to peak, currently 0.060
- Echocardiogram
- Coronary angiography today
CAD
- Prior PCI, occasionally will forget ASA
- Continue medical therapy
- Statin intolerance, she does not recall which medication, agreeable to trial of rosuvastatin, goal LDL <70, ideally less than 55
Statin intolerance
- Lipid panel: TC 184, LDL 116, HDL 38, TG 152
- Retrial of rosuvastatin 10 mg, she is not interested in atorvastatin
- If she does not tolerate rosuvastatin, PCSK9 will be recommended
Hypertension
- Stable but slightly above goal
- Lisinopril caused cough in the past
Hypercholesterolemia, plan as above
Lower extremity pain, with neuropathy, this has been ongoing for greater than 6 months
Prior breast cancer status postlumpectomy and XRT (left, 2017)
Colon cancer status post left hemicolectomy (1997)
Status post meningioma resection
Data Reviewed
-
EKG: Report Reviewed by me (Sinus rhythm, inferior T wave inversion, rate 69)
Medical Tests (Nuc Med, Echo etc): Report Reviewed by me
Labs: Labs Reviewed by me
Old Records: Reviewed
--- NOTE | 2025-01-03 09:02 | W.PN.HOSP.TC ---
Today's Communication/Plan
-
Cardiac cath today
Assessment / Plan
Assessment / Plan
Physical exam:
General: Acutely ill
HEENT: Normocephalic, Atraumatic and Moist Mucous Membranes
Respiratory: Clear to Auscultation; Negative Wheezes, Rales or Rhonchi
Cardiac: Regular Rhythm and S1/S2
GI: Soft, Nontender and Nondistended
Musculoskeletal: No Clubbing, No Cyanosis and No Edema
Neuro: Awake, Alert and Oriented, no neurodeficits
Psych: Answers
A/P:
NSTEMI
ASCVD
- Admit for further evaluation and treatment.
- Patient with some symptoms for at least a month (paroxysmal nocturnal dyspnea, chest pain, etc) and now more severe / frequent chest pain with exertion for the past week.
- EKG with inverted T wave in III alone that improved on repeat tracing.
- Troponin 0.031 to 0.054.
- Pain free at present.
- IV heparin, ASA. Follow troponin to peak. Monitor for recurrent symptoms.
- Cardiology consulted for probable ischemic evaluation.
- Emphasized to patient the importance of compliance with uninterrupted ASA therapy.
- She is resistant to taking statins despite her significant risks. Continue Zetia.
- Cardiology consult appreciated. Plan for cardiac cath today
- Discussed with daughter at bedside
Benign Hypertension
- Stable. BP controlled at present.
- Continue outpatient med regimen with holding parameters.
Leg Cramps
- Suspect that LE symptoms (pain with activity, nocturnal cramps, etc) may also be due to ASCVD / PAD.
- Would pursue non-invasive vascular studies after CAD issues are addressed.
DVT Prophylaxis: On IV Heparin at present.
Code Status: Full
Anticipated Discharge: 24 - 48 hours
Subjective/Interval History
-
Date of Service: January 03, 2025
Patient denies chest pain at rest. Still having symptoms on exertion
Objective Data
-
Labs:
Laboratory Results
01/02/25 01/02/25 01/03/25
21:00 22:59 05:49
WBC 6.1 4.3 L
Hgb 14.1 13.1
Hct 40.4 38.0
Plt Count 180 156
APTT 29.0 65.2 H
Sodium 140 140
Potassium 3.3 L 3.8
Chloride 106 109 H
Carbon Dioxide 27 26
BUN 25 H 19 H
Creatinine 0.7 0.6
Glucose 106 H 91
Calcium 10.0 9.6
Total Bilirubin 0.7
AST 27
ALT 26
Alkaline Phosphatase 87
01/03/25
12:30
WBC
Hgb
Hct
Plt Count
APTT Pending
Sodium
Potassium
Chloride
Carbon Dioxide
BUN
Creatinine
Glucose
Calcium
Total Bilirubin
AST
ALT
Alkaline Phosphatase
Vital Signs:
Vital Signs
Temp Pulse Resp BP Pulse Ox
97.9 F 69 20 146/85 97
01/03/25 07:19 01/03/25 04:00 01/03/25 07:19 01/03/25 03:20 01/03/25 07:19
I&O
01/02/25 01/03/25 01/04/25
06:59 06:59 06:59
Intake Total 36 / 36
Balance 36 / 36
[2025-01-03 09:30] LABS: Glycohemoglobin (HgbA1c) 5.7 % (4.0-5.6)
[2025-01-03] MEDS: NEURONTIN 200 MG PO ×2 (09:32→20:13)
[2025-01-03] MEDS: COZAAR 50 MG PO ×2 (09:32→20:14)
[2025-01-03] MEDS: LOW STRENGTH ASPIRIN 81 MG PO (09:33)
[2025-01-03] MEDS: COREG 6.25 MG PO ×2 (09:33→20:14)
[2025-01-03] MEDS: ZETIA 10 MG PO (09:33)
--- NOTE | 2025-01-03 10:50 | PTCARENOTE ---
assumed care of pt. pt is sb/sr on the monitor, hr in the 60s, vss. pt ambulated to br and c/o of cp when walking back. Pain resolved after laying down. bp 150/83. pt now resting in bed comfortably. notified Benita mojica, continue to monitor.
heparin gtt running per protocol, see documentation. pt educated on plan of care and pt verbalized understanding.
--- NOTE | 2025-01-03 12:06 | CM ---
Chart reviewed. Patient is independent of ADLS, lives with her in a [address], [facility], ambulates with a rollator, and a SPC outside the home. Plan is for the patient to return home. CM to follow
[2025-01-03 13:35] LABS: APTT 85.6 Sec (23.4-35.0)
[2025-01-03 13:49] LABS: Troponin I 0.036 ng/ml
[2025-01-03 16:15] LABS: ACT-LR - POC 348 Seconds (116-155)
[2025-01-03 17:35] LABS: ACT-LR - POC 302 Seconds (116-155)
--- NOTE | 2025-01-03 17:39 | ITS.CL.CATH ---
[employer] - Catheterization
Cardiac Catheterization
Procedure Report:
CARDIAC CATHETERIZATION REPORT
Date of Procedure: 01/03/2025
Referring: Darion Ames M.D.
INDICATION: Non-ST elevation myocardial infarction.
PROCEDURE:
1. Left heart catheterization.
2. Coronary angiography.
3. Successful PCI of the mid RCA.
4. Shockwave lithotripsy of the mid LAD.
5. Successful IVUS guided PCI of the mid and distal LAD.
A total of 125 minutes of procedural/moderate sedation was utilized. An independent certified medical assistant was present to assist with and help manage the patient's level of consciousness and physiologic status.
ACCESS:
1. 6 Tajik right radial artery using a modified Seldinger technique.
CATHETERS:
1. 5 [place] JR4.
2. 5 Taj[place] JL 3.5.
3. 6 [place] JR4 guiding catheter.
4. 6 [place]ik EBU 3.5 guiding catheter.
HEMODYNAMIC DATA
Weight (kg): 72.6
AO (s/d/x, mmHg): 133/69/96
LV (s/x mmHg): 137/12
LEFT VENTRICULOGRAPHY: Not performed.
CORONARY ANGIOGRAPHY
Dominance: Right.
Left Main: Normal size, bifurcating vessel. There is no coronary artery disease.
LAD: Normal size vessel giving rise to 3 diagonals. There is a densely calcified plaque beginning in the mid LAD that tapers, culminating in a 90% lesion that is immediately distal to the second diagonal. There is an underappreciated, 70%
lesion in the distal LAD, spanning the origin of the third diagonal. There are 40% and 50% lesions in the distal LAD, unamenable to intervention.
Ramus: Congenitally absent.
Circumflex: Normal size, nondominant vessel giving rise to 3 obtuse marginals. OM1 and OM 2 are relatively small vessels. OM 3 is a large vessel supplying the majority of the inferolateral wall. There is a patent stent extending from the
circumflex into the proximal margin of OM 3 with no in-stent restenosis.
RCA: Enormous, dominant vessel with a large posterolateral arcade. There is a 90%, focal lesion in the mid RCA.
INTERVENTION(S)
1. Successful PCI of the focal, 90% RCA lesion (Xience keven point 4.0 x 23 JAVON, postdilated with a 5.0 NC balloon) with reduction in stenosis to 0%, maintaining IKE-3 flow.
2. Successful intracoronary lithotripsy of the densely calcified 90% mid LAD lesion (Shockwave 2.5 x 12 lithotripsy balloon).
3. Successful IVUS guided PCI of the densely calcified mid LAD plaque (including the 90% lesion) and the 75% distal LAD lesion (Xience Skypoint 2.5 x 38 JAVON, postdilated with a 2.5 NC balloon throughout and a 3.0 NC balloon in the proximal margin)
with reduction in stenoses to 0%, maintaining IKE-3 flow.
Narrative:
After discussing the case with Dr. Christianson and reviewing the films, the decision was made to proceed with percutaneous coronary intervention. The diagnostic catheter was removed over a wire and a 6Fr JR4 guiding catheter was advanced to the aortic root
and seated in the right coronary artery. Additional heparin was given and a Power Turn Flex wire was advanced into the distal RCA. The 90% mid RCA lesion was predilated with a 2.0 x 12 semi-compliant balloon to 12 mary beth. The decision was made to more
aggressively predilate the lesion. The 2.0 x 12 semicompliant balloon was withdrawn and a 3.5 x 12 semicompliant balloon was advanced. The mid RCA lesion was dilated to 12 mary beth. The semi-compliant balloon was removed and a Xience Skypoint 4.0 x 23
drug-eluting stent was advanced. The stent was deployed at 12 atmospheres. The stent balloon was removed. A 5.0 x 15 noncompliant balloon was advanced into the stent and the stent was postdilated to 12 atmospheres. Angiography was performed in
orthogonal views, confirming good stent expansion and an excellent angiographic result. The coronary wire was withdrawn and the guide was disengaged from the artery.
We then turned our attention to the LAD. The 6 Tajik JR4 guiding catheter was removed over a wire and a 6Fr EBU 3.5 guiding catheter was advanced to the aortic root and seated in the left main coronary artery. The Power Turn Flex wire was advanced
into the distal LAD. Given the notable size of the 2nd and 3rd diagonal, the decision was made to attempt some level of protection. A BMW wire was advanced into the LAD and we attempted to protect the third diagonal. Unfortunately, the BMW wire
would not enter the third diagonal in spite of numerous attempts. The BMW wire was placed in the second diagonal and marked. A whisper wire was advanced into the LAD and was able to easily traverse the ostium of D3. This wire was also marked.
A Shockwave 2.5 x 12 coronary lithotripsy balloon was advanced over the wire and into the mid LAD lesion. The balloon was sterilely connected to the controller and prepped to negative pressure. Unfortunately, the Shockwave balloon would not
advance beyond the proximal portion of the mid LAD. The decision was made to reposition the Shockwave balloon with GuideLiner support. The Shockwave balloon was withdrawn. Given its tenuous position, we also removed the BMW wire from the second
diagonal.
A 6 Tajik GuideLiner was advanced over the 2.0 x 12 balloon. The GuideLiner was able to enter the mid LAD, but the 2.0 x 12 semicompliant balloon could not move beyond the underappreciated 75% distal LAD lesion which spanned the origin of D3. The
2.0 x 12 semicompliant balloon was removed and a fresh balloon was advanced. A fresh balloon was able to cross the lesion with some difficulty. The 75% distal LAD lesion and the densely calcified mid LAD plaque were all dilated to 12 mary beth. Given
the improved ability to move equipment in this dilated artery, we took this opportunity to advance the GuideLiner as far as we could into the mid LAD. The semicompliant balloon was removed and the Shockwave balloon was readvanced.
Meticulous care was taken while positioning the shockwave balloon. Once in satisfactory position, the balloon was inflated to 4 mary beth. After confirming good contact with the vessel wall, 10 pulses were delivered. After delivering 10 pulses, the
balloon was inflated to 6 mary beth then deflated. The entire mid LAD was treated in a similar manner for total of 7 rounds.
After the final Shockwave delivery, the Shockwave balloon was deflated and the GuideLiner was used to sheath the balloon and enter the mid LAD down to the level of the bifurcation with D3. A Xience Skypoint 2.5 x 38 drug-eluting stent was advanced.
The stent was deployed at 9 atmospheres. The stent balloon was removed. A 2.5 x 20 noncompliant balloon was advanced into the stent and the entire stent was postdilated to 12 atmospheres. The 2.5 x 20 noncompliant balloon was withdrawn and a 3.0 x
12 noncompliant balloon was advanced. The proximal stent margin in the mid LAD was postdilated to 14 mary beth. The noncompliant balloon was withdrawn.
The decision was made to perform intracoronary imaging. An IVUS catheter was advanced through the guiding catheter and into the ostium of the artery. Ring down was performed once the imaging crystal was no longer inside of the guiding catheter. The
IVUS catheter was advanced into the mid LAD but would not cross into the distal LAD, possibly due to the angulation of the LAD after the third diagonal. Intravascular ultrasound was performed in a retrograde fashion using a slow pullback.
Intracoronary imaging demonstrated good stent apposition throughout the entire stented segment with some mild underexpansion in the more distal aspect. This also confirmed the dense calcification within the entire LAD territory.
The decision was made to more aggressively dilate the distal aspect of the stented segment. 2.5 x 20 noncompliant balloon was readvanced. The distal aspect of the stent was postdilated to 18 mary beth. The remainder of the mid stent was postdilated to
20 mary beth. The noncompliant balloon was withdrawn.
Angiography was performed in orthogonal views, confirming good stent expansion and an excellent angiographic result with maintenance of IKE-3 flow in the LAD, preserving IKE-3 flow in all of the diagonals. The coronary wire was withdrawn and the
guide was disengaged from the artery. The catheter was removed over a standard J-wire.
Closure Device: Vascular band.
Radiation (mGy): 1323
DAP (cm2.Gy): 63.9
Fluoroscopy time (minutes): 28.5
CONCLUSIONS
1. Right dominant circulation with a widely patent stent in the left circumflex into OM 3, densely calcified mid LAD lesion culminating in a 90% stenosis followed by a 75% lesion in the distal LAD spanning the origin of the third diagonal and a
focal, 90% lesion in the in the enormous RCA. There is moderate, nonintervenable disease in the distal LAD.
2. Status post successful PCI to the 90% RCA lesion (Xience keven point 4.0 x 23 JAVON, postdilated with a 5.0 NC balloon) with reduction in stenosis to 0%, maintaining IKE-3 flow.
3. Status post intracoronary lithotripsy to the densely calcified mid LAD lesion, followed by successful IVUS guided PCI of the 90% mid LAD lesion and 75% distal LAD lesion (Xience Skypoint 2.5 x 38 JAVON, postdilated with a 2.5 NC balloon throughout
and a 3.0 NC balloon in the proximal margin) with reduction in stenosis to 0%, maintaining IKE-3 flow in the LAD as well as the notable diagonals.
4. Normal filling pressures (LVEDP = 12 mmHg at 72.6 kg).
RECOMMENDATIONS:
1. Expectant management after cardiac catheterization via right radial approach.
2. Limited weight bearing on the right wrist for one week.
3. Dual antiplatelet therapy with aspirin and ticagrelor for at least 12 months, followed by aspirin indefinitely.
4. Aggressive secondary prevention. Statin intolerance will require the use of PCSK9 inhibitors versus inclisiran.
5. OMT/GDMT as hemodynamics will tolerate.
6. Echocardiogram ordered and pending.
7. Referral to cardiac rehab.
Copy to: Amari Aldridge M.D., [facility]
Melvin Agudelo, DO, FACC, FACP
--- NOTE | 2025-01-03 18:36 | PTCARENOTE ---
received pt from ccl. right radial is cdi. pt offers no complaints at this time. family at bedside visiting. pt is sr on the monitor, hr in the 70s, vss. pt educated on plan of care and pt verbalized understanding. call soares within reach.
[2025-01-03] MEDS: TYLENOL 650 MG PO (20:13)
--- NOTE | 2025-01-03 20:30 | PTCARENOTE ---
Received pt at change of shift resting in bed, family at bedside. SR on tele, HR 70's-80's. pt denies any CP or SOB. no bleeding or hematoma noted at this time. Right radial site with band on. Tylenol administered per pt request for pain of 8/10 in
right wrist. 3cc air removed at 2018. pt refused pm dose of Crestor, despite education on importance of taking. pt states 'it gives me leg cramps.' Educated pt on activity restrictions at the cath site. pt verbalizes understanding. pt Encouraged to
call for assistance ambulating. Call soares within reach.
--- NOTE | 2025-01-04 00:23 | PTCARENOTE ---
TR band removed at 0015. Dressing placed. No bleeding or hematoma noted at this time. Reinforced activity restrictions, pt verbalizes understanding. Call soares within reach.
[2025-01-04 04:42] VITALS: BP 124/71
[2025-01-04 05:15] LABS: Hematocrit 38.9 % (37.0-47.0); Hemoglobin 13.5 g/dL (12.0-16.0); Mean Corp Hgb Conc. 34.7 g/dL (33.0-37.0); Mean Corpuscular Volume 86.4 fL (81.0-99.0); Platelet Count 172 10^3/uL (130-400); Red Cell Dist. Width 12.4 % (11.5-14.5)
[2025-01-04 05:37] LABS: Blood Urea Nitrogen 17 mg/dl (7-17); Calcium 9.7 mg/dl (8.4-10.2); Carbon Dioxide 24 mmol/L (22-30); Chloride 108 mmol/L (98-107); Estimated Creatinine Clearance 60 ml/min; Glucose 101 mg/dl (70-99); Potassium 3.6 mmol/L (3.5-5.1); Sodium 138 mmol/L (135-145); eGFR > 60.00
[2025-01-04 07:15] VITALS: BP 148/86
[2025-01-04] MEDS: BRILINTA 90 MG PO (08:22)
[2025-01-04] MEDS: LOW STRENGTH ASPIRIN 81 MG PO (08:22)
[2025-01-04 08:23] VITALS: BP 124/76
[2025-01-04] MEDS: ZETIA 10 MG PO (08:23)
[2025-01-04] MEDS: NEURONTIN 200 MG PO (08:23)
[2025-01-04] MEDS: COREG 6.25 MG PO (08:23)
[2025-01-04] MEDS: COZAAR 50 MG PO (08:23)
[2025-01-04 08:44] LABS: ACT-LR - POC > 397 Seconds (116-155)
[2025-01-04 08:44] LABS: ACT-LR - POC > 397 Seconds (116-155)
--- NOTE | 2025-01-04 09:52 | W.PN.CD ---
Today's Communication / Plan
-
12 months of DAPT
JULIENNE as outpatient for claudication symptoms of legs
Echo pending
trial of rosuva 10 mg, PCSK9i as outpt
Patient has follow up Jan 18 at 10:40 am with Kelsey Salinas.
We will sign off please call with questions.
Impression / Plan
-
I/P: 79F with CAD (NSTEMI with JAVON to LCx/OM and residual disease), hypertension, hypercholesterolemia, statin intolerance, breast cancer (status post lumpectomy and XRT, 2016), & colon cancer (hemicolectomy, 1997), presented with CP.
Primary Director [employer]: Dr. Hurst
NSTEMI s/p PCI of RCA and LAD
- Echo pending
- cont DAPT
- on rosuvastatin 10 mg, PCSK9i as outpt cont zetia
CAD
- Prior PCI, occasionally will forget ASA
- Continue medical therapy
- rosuvastatin 10 mg as ticag and Crestor can cause increased side effect of rosuvastatin ie myalgias myopathy and rhabdo, goal LDL <70, ideally less than 55
Statin intolerance
- Lipid panel: TC 184, LDL 116, HDL 38, TG 152
- Retrial of rosuvastatin 10 mg, she is not interested in atorvastatin
- PCSK9i as outpt
Hypertension
- Stable but slightly above goal
- Lisinopril caused cough in the past
Leg claudications?
- JULIENNE as outpt
Hypercholesterolemia, plan as above
Lower extremity pain, with neuropathy, this has been ongoing for greater than 6 months
Prior breast cancer status postlumpectomy and XRT (, 2016)
Colon cancer status post left hemicolectomy (1997)
Status post meningioma resection
Subjective: feeling well
Physical Exam
Vital Signs/Labs
Vital Signs
Temp Pulse Resp BP Pulse Ox
97.9 F 81 15 124/76 98
07/29/25 08:00 01/04/25 09:00 01/04/25 08:00 01/04/25 08:23 01/04/25 08:30
01/03/25 01/04/25 01/05/25
06:59 06:59 06:59
Actual Weight 160 lb 11.472 oz
01/04/25 04:59
01/04/25 04:59
APTT Cancelled 01/03/25 21:00
Triglycerides 152 mg/dl (10-149) H 01/03/25 05:49
LDL Cholesterol, Calc 116 mg/dl 01/03/25 05:49
VLDL Cholesterol, Calc 30 mg/dl (0-30) 01/03/25 05:49
HDL Cholesterol 38 mg/dl 01/03/25 05:49
LAB Results
01/02/25 01/02/25 01/03/25
21:00 23:18 05:49
Troponin I 0.031 0.054 H* D 0.060 H*
01/03/25 01/03/25
13:10 14:46
Troponin I 0.036 H* D Cancelled
Physical Exam
Constitutional: No acute distress and Comfortable
EENT: Anicteric
Cardiovascular: Rhythm & rate is regular and Pedal edema is absent
Respiratory: Respiratory effort normal and Lungs clear to auscul.
GI: Soft
Neuro/Psych: Alert and Oriented
Data Reviewed
-
Date of Service: January 04, 2025
Medical Decision Making: Reviewed Test Results
EKG: Tracing Personally Visualized and interpreted (sr)
Echo: Tracing Personally Visualized and interpreted
Labs: Labs Reviewed by me
--- NOTE | 2025-01-04 10:28 | CM ---
Pricing on Brilinta 90 mg through the patient's [employer], ID# [id number], is $468.47 and then it will cost her $ 89/month and Ticagrelor is $376 and then it will cost her $71/month. Goodrx has Ticagrelor at $36. It is available at the [facility]. Patient is agreeable. Dr Young notified to send the script there and the rest of her meds to her [employer]
--- NOTE | 2025-01-04 11:47 | W.PN.HOSP.TC ---
Today's Communication/Plan
-
Discharge planning today
Assessment / Plan
Assessment / Plan
Physical exam:
General: No acute distress today
HEENT: Normocephalic, Atraumatic and Moist Mucous Membranes
Respiratory: Clear to Auscultation; Negative Wheezes, Rales or Rhonchi
Cardiac: Regular Rhythm and S1/S2
GI: Soft, Nontender and Nondistended
Musculoskeletal: No Clubbing, No Cyanosis and No Edema
Neuro: Awake, Alert and Oriented, no neurodeficits
Psych: Calm
A/P:
NSTEMI
ASCVD
- Patient s/p PCI of RCA and LAD yesterday on 01/03
- Continue DAPT and low-dose statin for trial of tolerance. Continue beta-blockers and ARB and ezetimibe as well.
- Cardiology cleared her for discharge today after echocardiogram
- Pending echo
Benign Hypertension
- Stable. BP controlled at present.
- Continue outpatient med regimen with holding parameters.
Leg Cramps
- Suspect that LE symptoms (pain with activity, nocturnal cramps, etc) may also be due to ASCVD / PAD.
- Would pursue non-invasive vascular studies after CAD issues are addressed. Plan for JULIENNE as outpatient per cardiology recommendations.
DVT Prophylaxis: She was on heparin drip prior
Code Status: Full
Anticipated Discharge: Today
Subjective/Interval History
-
Date of Service: January 04, 2025
Patient denies chest pain or shortness of breath today.
Objective Data
-
Labs:
Laboratory Results
01/03/25 01/04/25
21:00 04:59
WBC 5.2
Hgb 13.5
Hct 38.9
Plt Count 172
APTT Cancelled
Sodium 138
Potassium 3.6
Chloride 108 H
Carbon Dioxide 24
BUN 17
Creatinine 0.7
Glucose 101 H
Calcium 9.7
Vital Signs:
Vital Signs
Temp Pulse Resp BP Pulse Ox
97.9 F 81 15 124/76 98
01/04/25 08:00 01/04/25 09:00 01/04/25 08:00 01/04/25 08:23 01/04/25 08:30
I&O
01/03/25 01/04/25 01/05/25
06:59 06:59 06:59
Intake Total 36 / 36
Balance 36 / 36
[2025-01-04 11:50] VITALS: BP 155/83
--- NOTE | 2025-01-04 12:18 | W.DCSUMMARY ---
Discharge Summary
Discharge Data
Date of Admission: 01/03/25
Date of Discharge: 01/04/25
Total time spent discharging patient (in min): 32
-
Pending Results: No
Hospital Course
Patient 79 years old female history of CAD, hypertension, hyperlipidemia, breast cancer, colon cancer, presented to the hospital with chest pain and elevated troponin consistent with non-STEMI. Cardiology consulted. She was started on ACS
protocol. Patient also had some intolerance to statins but was willing to try low-dose statin. Patient underwent cardiac catheterization and PCI stent in RCA and LAD. Patient did well postprocedure. Patient had an echocardiogram that showed
normal ejection fraction and no significant changes from prior echocardiogram. Cardiology has cleared her for discharge today. She will be discharged relatively stable condition today.
Discharge duration: 32 minutes
Discharge Plan
-
Patient Disposition: Home (Routine Discharge)
Discharge Diagnosis/Procedures: Non-ST elevation myocardial infarction. Procedure: Cardiac catheterization 01/03/2025. Hypertension. Hyperlipidemia. Possible leg claudication.
Condition: Good
Diet: Low Cholesterol and 2 Gram Sodium
Activity: No strenuous activity
Additional Activity: See attached instructions
Driving Restrictions: As prior to admission
Blood Work: Please PCP to order CBC, BMP within 1 week
Others Tests: JULIENNE as outpatient by cardiology and/or PCP
Stand Alone Forms: DC Instructions- Cath/EP Lab
Referrals:
[facility]. Cardiac Rehab [Outside] - 01/12/25 10:00 am
Referral Note: Cardiac Rehab Orientation appointment is on 01/16/25 at 10:00
The Cardiac Rehab gym is located on the first floor of the [facility].
Kelsey Salinas CRNP [Specified Professional Personl, Cardiology] - 01/18/25 10:40 am
Manuela Sewell NP [Family Provider, Internal Medicine] - in less than 1 week
Prescriptions:
New
ticagrelor [Brilinta] 90 mg Tablet
90 mg PO BID Qty: 60 0RF
rosuvastatin 10 mg Tablet
10 mg PO QPM 30 Days Qty: 30 0RF
Continued
nitroglycerin 0.4 MG tablet, sublingual
0.4 mg sublingual [id number] PRN (Reason: chest pain) Qty: 25 2RF
losartan 50 mg Tablet
50 mg PO BID
carvedilol 6.25 mg Tablet
6.25 mg PO BID
aspirin 81 mg Tablet,Chewable
81 mg PO DAILY
ezetimibe 10 mg Tablet
10 mg PO DAILY
gabapentin 100 mg Tablet
200 mg PO BID
hydrochlorothiazide 12.5 mg Tablet
12.5 mg PO DAILY
levomefolate-algal oil 7.5-90.314 mg Capsule
1 cap PO DAILY
Discharge Orders:
Discharge Patient (As Directed); Ordered 01/04/25
Ordered By: Mohit Young
Care Plan Goals
Care Plan Goals:
Problem: Readiness for enhanced knowledge related to diagnosis and treatment plan
Goal: Understand your diagnosis and treatment plan needs, including medications if applicable.
Instructions: Know your diagnosis, underlying causes and treatment plan options, including medications if applicable. Consult with your health care team to learn about your diagnosis and treatment plan, including medications if applicable.
Discharge Date and Time
Discharge Date/Time: 01/04/25 16:14
Print Language: SINGAPOREAN
[2025-01-04 15:22] VITALS: BP 152/75
--- NOTE | 2025-01-04 16:13 | PTCARENOTE ---
IV and tele removed. Discharge instructions reviewed w/ pt and daughter and verbalizes understanding. Belongings collected and sent home w/ pt. Escorted via WC and staff assist.
== END 2025-01-04 16:14 | disposition home or self-care (01) | DRG 324 ==
LOC: IVU 01:59
PROVIDERS: Emergency Medicine; Internal Medicine Cardiovascular Disease; ADMITTING PHYSICIAN Hospitalist; ATTENDING PHYSICIAN Hospitalist; EMERGENCY PHYSICIAN Emergency Medicine; FAMILY PHYSICIAN Nurse Practitioner Family; OTHER PHYSICIAN Internal Medicine Cardiovascular Disease
PROC: 02F03ZZ Fragmentation in Coronary Artery, One Artery, Percutaneous Approach (ICD-10-PCS; 2025-01-03)
PROC: 027135Z Dilation of Coronary Artery, Two Arteries with Two Drug-eluting Intraluminal Devices, Percutaneous Approach (ICD-10-PCS; 2025-01-03)
PROC: B240ZZ3 Ultrasonography of Single Coronary Artery, Intravascular (ICD-10-PCS; 2025-01-03)
PROC: B2111ZZ Fluoroscopy of Multiple Coronary Arteries using Low Osmolar Contrast (ICD-10-PCS; 2025-01-03)
PROC: 4A023N7 Measurement of Cardiac Sampling and Pressure, Left Heart, Percutaneous Approach (ICD-10-PCS; 2025-01-03)
DX: I21.4 Non-ST elevation (NSTEMI) myocardial infarction (principal); I25.10 Atherosclerotic heart disease of native coronary artery without angina pectoris; E78.00 Pure hypercholesterolemia, unspecified; I10 Essential (primary) hypertension; R25.2 Cramp and spasm; I87.2 Venous insufficiency (chronic) (peripheral); G62.9 Polyneuropathy, unspecified; I73.9 Peripheral vascular disease, unspecified; Z85.038 Personal history of other malignant neoplasm of large intestine; Z85.3 Personal history of malignant neoplasm of breast; I25.2 Old myocardial infarction; Z95.5 Presence of coronary angioplasty implant and graft; Z79.82 Long term (current) use of aspirin
CPT/HCPCS: 71045; 80048; 80053; 80061; 83036; 84484; 85025; 85027; 85347; 85730; 92972; 92978; 93005; 93306; 93458; 99152; 99153; 99291; C1725; C1753; C1761; C1769; C1874; C1894; C9600; Q9967

== ENCOUNTER 2025-02-04 15:19 | Outpatient (RCR) | payer MEDICARE, OTHER, SELFPAY | END 2025-02-04 23:59 | disposition home or self-care (01) | LOC: CRHB 15:19 | PROVIDERS: ATTENDING PHYSICIAN Student in an Organized Health Care Education/Training Program | DX: I25.10 Atherosclerotic heart disease of native coronary artery without angina pectoris (principal); I25.2 Old myocardial infarction; Z95.5 Presence of coronary angioplasty implant and graft | CPT/HCPCS: 93797; 93798; G0422; G0423 ==

== ENCOUNTER 2025-02-18 15:58 | Outpatient (RCR) | payer MEDICARE, OTHER, SELFPAY | END 2025-02-18 23:59 | disposition home or self-care (01) | LOC: CRHB 15:58 | PROVIDERS: ATTENDING PHYSICIAN Internal Medicine Cardiovascular Disease; FAMILY PHYSICIAN Nurse Practitioner Family | DX: I25.2 Old myocardial infarction (principal); I25.10 Atherosclerotic heart disease of native coronary artery without angina pectoris; Z95.5 Presence of coronary angioplasty implant and graft | CPT/HCPCS: G0422; G0423 ==

== ENCOUNTER → 2025-03-23 11:53 | Outpatient (REF) | payer MEDICARE, OTHER, SELFPAY ==
[2025-03-23 16:18] LABS: ALT (SGPT) 31 U/L (0-35); AST (SGOT) 33 U/L (14-36); Albumin 4.2 g/dl (3.5-5.0); Alkaline Phosphatase 94 U/L (38-126); Blood Urea Nitrogen 18 mg/dl (7-17); Calcium 9.8 mg/dl (8.4-10.2); Carbon Dioxide 30 mmol/L (22-30); Chloride 106 mmol/L (98-107); Glucose 98 mg/dl (70-99); HDL Cholesterol 43 mg/dl; LDL Cholesterol, Calculated 48 mg/dl; Potassium 4.4 mmol/L (3.5-5.1); Sodium 140 mmol/L (135-145); Total Protein 6.4 g/dl (6.3-8.2); Very Low Density Lipoprotein 31 mg/dl (0-30); eGFR > 60.00
== END ==
LOC: HWLAB 11:53
PROVIDERS: ATTENDING PHYSICIAN Nurse Practitioner; FAMILY PHYSICIAN Nurse Practitioner Family
DX: N17.8 Other acute kidney failure (principal); E78.5 Hyperlipidemia, unspecified
CPT/HCPCS: 36415; 80053; 80061

== ENCOUNTER → 2025-04-05 12:56 | Outpatient (REF) | payer MEDICARE, OTHER, SELFPAY | LOC: HWRAD 12:56 | PROVIDERS: ATTENDING PHYSICIAN Nurse Practitioner Family | DX: E04.1 Nontoxic single thyroid nodule (principal) | CPT/HCPCS: 76536 ==

== ENCOUNTER → 2025-04-08 10:25 | Outpatient (REF) | payer MEDICARE, OTHER, SELFPAY | LOC: PAVMRI 10:25 | PROVIDERS: ATTENDING PHYSICIAN Nurse Practitioner Family | DX: M79.605 Pain in left leg (principal) | CPT/HCPCS: 73718 ==

== ENCOUNTER → 2025-04-12 12:12 | Outpatient (REF) | payer MEDICARE, OTHER, SELFPAY | LOC: EMG 12:12 | PROVIDERS: ATTENDING PHYSICIAN Nurse Practitioner Family | DX: R20.0 Anesthesia of skin (principal) | CPT/HCPCS: 95886; 95911 ==